=== PATIENT | male | born 1960 | race Caucasian/White ===

== ENCOUNTER 2019-09-18 08:10 | Outpatient (CLI) | payer OTHER ==
[2019-09-18 15:27] LABS: BASOPHILS # (AUTO) 0.1 10^3/uL (0.0-0.1); BASOPHILS % (AUTO) 1.1 %; EOSINOPHILS # (AUTO) 0.3 10^3/uL (0.0-0.7); HGB - HEMOGLOBIN 14.8 g/dL (14.0-18.0); LYMPHOCYTES # (AUTO) 1.6 10^3/uL (1.5-3.5); LYMPHOCYTES % (AUTO) 26.1 %; MEAN CORPUSCULAR HEMOGLOBIN 28.5 pg (27.0-31.0); MEAN CORPUSCULAR HGB CONC 32.6 g/dL (32.0-36.0); MEAN CORPUSCULAR VOLUME 87.3 fL (80.0-94.0); MEAN PLATELET VOLUME 10.5 fL (7.4-11.4); MONOCYTES # (AUTO) 0.6 10^3/uL (0.0-1.0); MONOCYTES % (AUTO) 9.2 %; NEUTROPHILS # (AUTO) 3.7 10^3/uL (1.5-6.6); NEUTROPHILS % (AUTO) 59.4 %; PLT - PLATELET COUNT 182 10^3/uL (130-450); RED CELL DISTRIBUTION WIDTH 13.8 % (12.0-15.0); WHITE BLOOD COUNT 6.2 x10^3/uL (4.8-10.8)
[2019-09-18 16:14] LABS: ALBUMIN 4.4 g/dL (3.2-5.5); ALBUMIN/GLOBULIN RATIO 1.4 (1.0-2.2); ALKALINE PHOSPHATASE 66 IU/L (42-121); ALT ALANINE AMINOTRANSFERASE 24 IU/L (10-60); AST ASPARTATE AMINOTRANSFERASE 24 IU/L (10-42); BILIRUBIN,TOTAL 0.9 mg/dL (0.2-1.0); BUN - BLOOD UREA NITROGEN 16 mg/dL (6-20); CALCIUM 9.3 mg/dL (8.5-10.3); CARBON DIOXIDE - CO2 27 mmol/L (21-32); CHLORIDE 103 mmol/L (101-111); CHOL/HDL RATIO 4.8 (<5.0); CHOLESTEROL 192 mg/dL; CREATININE 0.9 mg/dL (0.6-1.2); GFR - MDRD 87 (>89); GLUCOSE 98 mg/dL (70-100); HDL CHOLESTEROL 40 mg/dL; LDL CHOLESTEROL,CALCULATED 128 mg/dL; LDL/HDL RATIO 3.2 (<3.6); SODIUM 139 mmol/L (135-145); TOTAL PROTEIN 7.5 g/dL (6.7-8.2); VLDL CHOLESTEROL 24 mg/dL
== END 2019-09-18 23:59 | disposition home or self-care (01) ==
LOC: LAB.WCP 08:10
PROVIDERS: ATTEND Family Medicine
DX: E78.5 Hyperlipidemia, unspecified (principal); I10 Essential (primary) hypertension; Z12.5 Encounter for screening for malignant neoplasm of prostate
CPT/HCPCS: 36415; 80053; 80061; 83721; 84153; 84443; 85025

== ENCOUNTER 2020-05-02 11:04 | Emergency (ER) | payer OTHER, BC ==
[2020-05-02 11:15] VITALS: BP 138/65
[2020-05-02] MEDS ORDERED: TETANUS/DIPHTHERIA/PERTUSSIS 0.5 ML SYRINGE IM ONE (12:03)
[2020-05-02] MEDS ORDERED: BACITRACIN ZINC OINT 1 PACKET TOP STA (12:03)
[2020-05-02] MEDS ORDERED: BUFFERED LIDOCAINE 10 ML SYRINGE SUBQ STA (12:03)
--- NOTE | 2020-05-02 12:05 | ED Physician Documentation ---
History of Present Illness - Stated complaint Stated Complaint: LT HAND LAC - Chief complaint Chief Complaint: Laceration - History of Present Illness Timing: Prior to arrival, How many hours ago (1) Pain level max: 9 Pain level now: 2 - Additonal information Additional information: 60-year-old male comes to the emergency department with a 5 cm lacer ation/abrasion to the dorsal side of his left small finger and hand sustained when using a grinding wheel at work. Patient is right-handed. Unknown last tetanus. bleeding controlled with pressure. NVI Review of Systems Constitutional: denies: Fever, Chills Cardiac: denies: Chest pain / pressure, Palpitations Respiratory: denies: Dyspnea, Cough Skin: reports: Laceration (s) (left hand/small finger) PD PAST MEDICAL HISTORY - Past Medical History Cardiovascular: Hypertension Musculoskeletal: Gout - Present Medications Home Medications: Ambulatory Orders Medication Instructions Recorded Confirmed Amlodipine Besylate 10 mg PO 05/04/13 05/04/13 Aspirin [Aspir 81] 81 mg PO 05/04/13 05/04/13 Lisinopril [Zestril] 10 mg PO 05/04/13 05/04/13 allopurinoL [Zyloprim] 100 mg PO DAILY 05/04/13 05/04/13 - Allergies Allergies/Adverse Reactions: Allergies Allergy/AdvReac Type Severity Reaction Status Date / Time No Known Drug Allergies Allergy Verified 05/02/20 11:10 PD ED PE NORMAL - General General: Alert and oriented X 3, No acute distress, Well developed/nourished - Extremities Extremities: No deformity, Other (7 cm laceration with deeper abrasion surrounding laceration dorsal side left small finger extending to the mcp of left hand) Results - Vitals Vitals: Vital Signs - 24 hr 05/02/20 11:07 Temperature 36.0 C L Heart Rate 82 Respiratory 16 Rate Blood Pressure 138/65 H O2 Saturation 98 Oxygen O2 Source Room air Procedures - Laceration (location) left small finger Length in cm: 5 Wound type: Linear Neurovascular status: Sensory intact, Motor intact, Vascular intact Tendon involvement: Tendon intact. No: Tendon Injury Anesthesia: Lidocaine 1% Wound Preparation: Chlorhexadine, Irrigated copiously NS, Debrided moderately Skin layer closure: Nylon, Sutures - enter # (3), Other (This was a 5 cm laceration surrounded by a large area of the skin abrasion and avulsion from a carbide grinder. 3 sutures were placed to approximate the wound bed and allow internal healing.) Other: Patient tolerated well, No complications, Neurovascular intact, Dressing applied, Tetanus booster given PD MEDICAL DECISION MAKING - ED course Complexity details: reviewed results, re-evaluated patient, d/w patient ED course: 60-year-old male presents to the emergency department with a 5 cm left small finger laceration surrounded by deeper abrasion of the skin that was sustained by using a carbide grinder at work. - 3 sutures were placed through the wound to approximate the internal layers of the wound. The external layers and abrasion will take quite a bit longer to heal. - Tetanus was updated today in the emergency department - Suture removal in 7 to 10 days return precautions for infection discussed Departure - Departure Disposition: 01 Home, Self Care Clinical Impression: Finger laceration Qualifiers: Encounter type: initial encounter Finger: little finger Damage to nail status: without damage Foreign body presence: without foreign body Laterality: left Qualified Code(s): S61.217A - Laceration without foreign body of left little finger without damage to nail, initial encounter Finger abrasion Qualifiers: Encounter type: initial encounter Qualified Code(s): S60.419A - Abrasion of unspecified finger, initial encounter Condition: Stable Instructions: ED Laceration All Follow-Up: Dante Lyn MD [Primary Care Provider] - Within 1 week Comments: Sebastien your sutures should be removed in 7 to 10 days. The wound will take probably 2 to 3 weeks to heal as it is a deeper abrasion that will need to also heal from the inside out.Your tetanus was updated today and should be good for the next 7 to 10 years. Please return to the emergency department for concerns of infection, fevers, redness. In 24 hours you may gently wash your left hand with warm soap and water. Then apply antibiotic ointment and a simple bandage. Please wear the foam splint to prevent movement of the skin as this wound heals. Until cleared by your primary doctor please avoid lifting pushing or pulling with the left hand. You may take Tylenol or ibuprofen [id number] for pain
[2020-05-02] MEDS ORDERED: LIDOCAINE 2%-EPI 1:100000 20 ML MDV ONE (12:27)
== END 2020-05-02 12:55 | disposition home or self-care (01) ==
LOC: ED 11:04
DX: S61.217A Laceration without foreign body of left little finger without damage to nail, initial encounter (principal); S60.417A Abrasion of left little finger, initial encounter; S60.512A Abrasion of left hand, initial encounter; W31.1XXA Contact with metalworking machines, initial encounter; Y93.89 Activity, other specified; Y99.0 Civilian activity done for income or pay; Z23 Encounter for immunization; I10 Essential (primary) hypertension; Z79.82 Long term (current) use of aspirin
CPT/HCPCS: 12002; 90471; 90715; 99282; 99283; A9270

== ENCOUNTER 2020-11-13 08:00 | Outpatient (CLI) | payer BC, OTHER ==
[2020-11-13 12:48] LABS: BASOPHILS # (AUTO) 0.1 10^3/uL (0.0-0.1); BASOPHILS % (AUTO) 0.9 %; EOSINOPHILS # (AUTO) 0.2 10^3/uL (0.0-0.7); EOSINOPHILS % (AUTO) 2.8 %; HGB - HEMOGLOBIN 14.5 g/dL (14.0-18.0); LYMPHOCYTES # (AUTO) 1.4 10^3/uL (1.5-3.5); LYMPHOCYTES % (AUTO) 19.6 %; MEAN CORPUSCULAR HEMOGLOBIN 27.4 pg (27.0-31.0); MEAN CORPUSCULAR HGB CONC 32.1 g/dL (32.0-36.0); MEAN CORPUSCULAR VOLUME 85.3 fL (80.0-94.0); MEAN PLATELET VOLUME 10.4 fL (7.4-11.4); MONOCYTES # (AUTO) 0.5 10^3/uL (0.0-1.0); MONOCYTES % (AUTO) 7.7 %; NEUTROPHILS # (AUTO) 4.8 10^3/uL (1.5-6.6); NEUTROPHILS % (AUTO) 68.6 %; PLT - PLATELET COUNT 202 10^3/uL (130-450); RED CELL DISTRIBUTION WIDTH 14.3 % (12.0-15.0)
[2020-11-13 13:14] LABS: ALBUMIN 4.1 g/dL (3.2-5.5); ALBUMIN/GLOBULIN RATIO 1.2 (1.0-2.2); ALKALINE PHOSPHATASE 111 IU/L (42-121); ALT ALANINE AMINOTRANSFERASE 18 IU/L (10-60); AST ASPARTATE AMINOTRANSFERASE 19 IU/L (10-42); BILIRUBIN,TOTAL 0.7 mg/dL (0.2-1.0); BUN - BLOOD UREA NITROGEN 20 mg/dL (6-20); CALCIUM 9.8 mg/dL (8.5-10.3); CARBON DIOXIDE - CO2 28 mmol/L (21-32); CHLORIDE 101 mmol/L (101-111); CHOL/HDL RATIO 4.8 (<5.0); CHOLESTEROL 182 mg/dL; CREATININE 0.9 mg/dL (0.6-1.2); GLUCOSE 106 mg/dL (70-100); HDL CHOLESTEROL 38 mg/dL; LDL CHOLESTEROL,CALCULATED 128 mg/dL; LDL/HDL RATIO 3.4 (<3.6); TOTAL PROTEIN 7.6 g/dL (6.7-8.2); URIC ACID 5.8 mg/dL (2.6-7.2); VLDL CHOLESTEROL 16 mg/dL
== END 2020-11-13 23:59 | disposition home or self-care (01) ==
LOC: LAB.WCP 08:00
PROVIDERS: ATTEND Family Medicine
DX: I10 Essential (primary) hypertension (principal); E78.5 Hyperlipidemia, unspecified; Z12.5 Encounter for screening for malignant neoplasm of prostate; M10.9 Gout, unspecified
CPT/HCPCS: 36415; 80053; 80061; 83721; 84153; 84550; 85025

== ENCOUNTER 2020-11-22 18:41 | Outpatient (CLI) | payer BC ==
--- NOTE | 2020-11-22 19:03 | CT Report ---
PROCEDURE: Sinuses INDICATIONS: CHRONIC SINUSITIS TECHNIQUE: Noncontrast 3.0 mm axial images acquired from the frontal sinuses to the mid-sella, with coronal and sagittal reformats. For radiation dose reduction, the following was used: automated exposure control , adjustment of mA and/or kV according to patient size. COMPARISON: None. FINDINGS: Image quality: Excellent. Maxillary Sinuses: No bony remodeling or destruction. There is complete opacification of the right m axillary sinus. Mild left maxillary sinus mucosal thickening is present. Ethmoid Air Cells: No bony remodeling or destruction. Severe opacification of the bilateral anterior ethmoid air cells. Sphenoid Sinuses: No bony remodeling or destruction. Sinuses are clear. Frontal Sinuses: No bony remodeling or destruction. Complete opacification of the right frontal sinu s. Near complete opacification of the left frontal sinus. Ostiomeatal Complexes: Right ostiomeatal unit is opacified and there is soft tissue density extending from the right maxillary sinus into the right nasal cavity. Left ostiomeatal unit is opacified. No H aller cells. Miscellaneous: Visualized intra-orbital contents are normal. No joon bullosa. Mild rightward nasa l septal deviation. IMPRESSION: 1. Pansinus mucosal disease. 2. Findings suggestive of nasal polyposis involving the right aspect of the nasal cavity. 3. Rightward nasal septum deviation. Reviewed by: Rosa Doshi MD on 11/22/2020 7:02 PM PST Approved by: Rosa Doshi MD on 11/22/2020 7:02 PM PST Station ID: [id number]
== END 2020-11-22 18:42 | disposition home or self-care (01) ==
LOC: DI 18:41
PROVIDERS: ATTEND Family Medicine
DX: J32.9 Chronic sinusitis, unspecified (principal); J34.2 Deviated nasal septum

== ENCOUNTER 2020-12-27 09:00 | Day surgery (SDC) | payer BC ==
[2020-12-27] MEDS ORDERED: LACTATED RINGERS 1,000 ML IV ONE ×2 (09:26→10:45)
--- NOTE | 2020-12-27 09:58 | ANESTHESIA ---
Pre-Anesthesia VS, & Labs - Diagnosis change in bowel habits - Procedure colonoscopy Vital Signs: Temp Pulse Resp BP Pulse Ox 36.3 C L 69 16 142/68 H 98 12/27/20 09:20 12/27/20 09:20 12/27/20 09:20 12/27/20 09:20 12/27/20 09:20 Height: 6 ft 4 in Weight (kg): 93.3 kg Body Mass Index: 25.0 BMI Classification: Overweight - NPO Last Fluid Intake: clear liquids at 0600 Home Medications and Allergies Amlodipine Besylate 10 mg PO DAILY 05/04/13 Aspirin [Aspir 81] 81 mg PO DAILY 05/04/13 Lisinopril [Zestril] 10 mg PO DAILY 05/04/13 allopurinoL [Zyloprim] 100 mg PO DAILY 05/04/13 Allergies/Adverse Reactions: Allergies Allergy/AdvReac Type Severity Reaction Status Date / Time No Known Drug Allergies Allergy Verified 12/26/20 13:14 Anes History & Medical History - Anesthetic History Anesthesia Complications: reports: No previous complications - Medical History Cardiovascular: reports: Hypertension Pulmonary: reports: None Gastrointestinal: reports: None Urinary: reports: None Neuro: reports: None Musculoskeletal: reports: Gout Endocrine/Autoimmune: reports: None Blood Disorders: reports: None Skin: reports: None Smoking Status: Never smoker Psychosocial: reports: No issues indicated History of Cancer?: No - Surgical History General: reports: Other ([facility]) Orthopedic: reports: Spine surgery Exam General: Alert, Oriented x3, Cooperative, No acute distress Dental: Poor dentition Mouth Openin Fingerbreadth Neck Mobility: Normal Mallampati classification: III Thyromental Distance: 4-6 cm Mental/Cognitive Status: Alert/Oriented X3, Normal for patient Plan Anesthesia Type: MAC Consent for Procedure(s) Verified and Reviewed: Yes Code Status: Attempt Resuscitation ASA classification: 2-Mild systemic disease Is this case an emergency?: No
[2020-12-27] MEDS ORDERED: PROPOFOL 200 MG/20 ML VIAL IVP ONE ×2 (10:15→10:32)
[2020-12-27] MEDS ORDERED: fentaNYL 100 MCG/2 ML VIAL ONE (10:16)
[2020-12-27] MEDS ORDERED: LIDOCAINE-MPF 2% 5 ML VIAL ONE (10:16)
--- NOTE | 2020-12-27 10:47 | ANESTHESIA POST OP EVALUATION ---
Anesthesia Post Eval - Post Anesthesia Eval Vitals: Last Vital Signs Temp 36.3 C L 12/27/20 09:20 Pulse 69 12/27/20 09:20 Resp 16 12/27/20 09:20 BP 142/68 H 12/27/20 09:20 Pulse Ox 98 12/27/20 09:20 CV Function Including HR & BP: positive: Stable Pain Control: positive: Satisfactory Nausea & Vomiting: positive: Negative Mental Status: positive: Baseline Respiratory Status: Airway Patent Hydration Status: Satisfactory Anesthesia Complications: positive: None
[2020-12-27 11:01] VITALS: BP 120/68
== END 2020-12-27 09:01 | disposition home or self-care (01) ==
LOC: SDS 09:00
PROVIDERS: ATTEND Surgery
DX: R19.4 Change in bowel habit (principal); I10 Essential (primary) hypertension; E66.3 Overweight; Z68.25 Body mass index [BMI] 25.0-25.9, adult
CPT/HCPCS: 45378; J7120